=== PATIENT | female | born 1955 | race Caucasian/White ===

== ENCOUNTER 2021-03-03 18:50 | Emergency (ER) | payer MEDICARE, OTHER ==
[~2021-03-03] VITALS: Ht 160 cm; Wt 154.2 kg
[2021-03-03 19:45] LABS: BASOPHIL 0.6 % (0-2); EOSINOPHIL 1.5 % (0-7); HCT 40.2 % (37.0-47.0); HGB 12.3 g/dl (12.5-16.0); LYMPHOCYTE 19.9 % (15-48); MCH 28.3 pg (25.0-31.0); MCHC 30.6 g/dL (32.0-36.0); MCV 92.6 fL (78.0-100.0); MONOCYTE 9.5 % (0-12); MPV 9.7 fL (6.0-9.5); NEUTROPHIL 67.6 % (41-80); NRBC 0; PLT 231 K/uL (150-400); RBC 4.34 M/uL (4.20-5.40); WBC 9.1 K/uL (4.0-10.5)
[2021-03-03 20:04] LABS: ALBUMIN 3.9 g/dL (3.4-5.0); BILIRUBIN - TOTAL 0.2 mg/dL (0.2-1.0); BUN/CREAT RATIO (CALC) 35.6 RATIO; CREATININE 0.9 mg/dL (0.51-0.95); GLOBULIN (CALCULATION) 3.8 g/dL; POTASSIUM 4.6 mmol/L (3.5-5.1); TOTAL PROTEIN 7.7 g/dL (6.4-8.2)
[2021-03-03 21:08] LABS: BILIRUBIN NEGATIVE (NEGATIVE); BLOOD NEGATIVE Ery/uL (NEGATIVE); CLARITY CLEAR (CLEAR); COLOR YELLOW (YELLOW); GLUCOSE (U) NORMAL (NORMAL); LEUKOCYTES NEGATIVE Leu/uL (NEGATIVE); NITRITE NEGATIVE (NEGATIVE); PROTEIN NEGATIVE (NEGATIVE); SPECIFIC GRAVITY >=1.030 (1.001-1.030); UROBILINOGEN 0.2 mg/dL (0.2-1.0); pH 5.5 (5.0-9.0)
[2021-03-03] MEDS ORDERED: HYDROCODON-ACE1 EAC2 PO (21:44)
[2021-03-03] MEDS ORDERED: ONDANSETRON ODT4 MG PO (21:44)
[2021-03-03] MEDS ORDERED: LEVSIN-SL0.125 M1 PO (22:00)
== END 2021-03-03 22:10 | disposition home or self-care (01) ==
LOC: FER 18:50
PROVIDERS: Internal Medicine
DX: K43.9 Ventral hernia without obstruction or gangrene (principal); I10 Essential (primary) hypertension; J44.9 Chronic obstructive pulmonary disease, unspecified; Z88.2 Allergy status to sulfonamides
CPT/HCPCS: 36415; 80053; 81003; 83690; 85025; J1170; J2270; J2405

== ENCOUNTER → 2021-06-29 | Day surgery (SDC) | payer MEDICARE, OTHER ==
[~2021-06-29] VITALS: Ht 160 cm; Wt 156.5 kg
[~2021-06-29] MED LIST: BENADRYL25 MG PO; HYDROCODON-ACE1 EAC2 PO; LASIX40 MG PO; LEVSIN-SL0.125 M1 PO; NITROQUIK SL0.4 MG SL; ONDANSETRON ODT4 MG PO; SINGULAIR10 MG PO; TOPROL XL50 MG PO; TYLENOL ARTHRI650 MG PO; ULORIC80 MG PO; VENLAFAXINE H37.5 M1 PO; VENTOLIN HFA IN18 GM INH; VIT D3 PO; XANAX0.25 MG PO; ZESTRIL5 MG PO
== END | disposition home or self-care (01) ==
LOC: FAS 05-18 09:45
DX: D12.0 Benign neoplasm of cecum (principal); D12.2 Benign neoplasm of ascending colon; K64.8 Other hemorrhoids; K64.4 Residual hemorrhoidal skin tags; K62.1 Rectal polyp; K57.30 Diverticulosis of large intestine without perforation or abscess without bleeding; K52.9 Noninfective gastroenteritis and colitis, unspecified; I25.2 Old myocardial infarction; I12.9 Hypertensive chronic kidney disease with stage 1 through stage 4 chronic kidney disease, or unspecified chronic kidney disease; N18.9 Chronic kidney disease, unspecified; J44.9 Chronic obstructive pulmonary disease, unspecified; G47.30 Sleep apnea, unspecified; Z90.49 Acquired absence of other specified parts of digestive tract; Z88.2 Allergy status to sulfonamides; Z87.891 Personal history of nicotine dependence; Z98.51 Tubal ligation status
CPT/HCPCS: J2250; J2704; J7120

== ENCOUNTER 2021-10-02 18:29 | Emergency (ER) | payer MEDICARE, OTHER ==
[2021-10-02 19:27] LABS: BASOPHIL 0.6 % (0-2); EOSINOPHIL 1.8 % (0-7); HCT 37.1 % (37.0-47.0); HGB 11.5 g/dl (12.5-16.0); LYMPHOCYTE 25.9 % (15-48); MCH 27.9 pg (25.0-31.0); MONOCYTE 9.2 % (0-12); MPV 9.3 fL (6.0-9.5); NEUTROPHIL 62.1 % (41-80); NRBC 0; PLT 221 K/uL (150-400); RBC 4.12 M/uL (4.20-5.40); RDW 15.9 % (11.5-14.0)
[2021-10-02 19:37] LABS: INR 1.04 (0.9-1.2); PTT 24.3 SECONDS (24.4-34.7)
[2021-10-02 19:42] LABS: ALBUMIN 3.7 g/dL (3.4-5.0); BILIRUBIN - TOTAL 0.3 mg/dL (0.2-1.0); BUN/CREAT RATIO (CALC) 30.9 RATIO; CREATININE 0.97 mg/dL (0.51-0.95); GLOBULIN (CALCULATION) 3.5 g/dL; TOTAL PROTEIN 7.2 g/dL (6.4-8.2)
== END 2021-10-02 23:20 | disposition home or self-care (01) ==
LOC: FER 18:29
PROVIDERS: Internal Medicine
DX: R07.89 Other chest pain (principal); M54.9 Dorsalgia, unspecified; I25.2 Old myocardial infarction; I10 Essential (primary) hypertension; Z88.2 Allergy status to sulfonamides; Z79.899 Other long term (current) drug therapy
CPT/HCPCS: 36415; 71045; 71250; 72128; 80053; 83880; 84484; 85025; 85610; 85730; 93005